=== PATIENT | male | born 1955 | race Caucasian/White ===

== ENCOUNTER → 2024-05-26 | Outpatient (CLI) | payer MEDICARE ==
--- NOTE | 2024-06-01 06:15 | MR ---
EXAMINATION TYPE: MR hip LT wo con DATE OF EXAM: 05/26/2024 COMPARISON: None. HISTORY: Lt hip pain, limited movement for over a year. Standard multiplanar, multisequence MRI departmental protocol Multiplanar, multisequence images of the pelvis focusing on the left hip were acquired without contra st. FINDINGS: Susceptibility artifact from right hip arthroplasty is identified. There is moderate to sev ere joint space loss in the left hip with moderate acetabular spurring. No significant left hip joint effusion is present. Femoral head shape is maintained. No significant increased T2 signal or osseous edema. No serpiginous diminished T1 signal to suggest avascular necrosis. No groin adenopathy is pre sent bilaterally. No groin hernia is seen. Muscle bulk is symmetric and maintained bilaterally. Prostate gland appears within normal limits. No abnormal bowel dilatation is seen. No free fluid in p bob is noted. 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
== END | disposition home or self-care (01) ==
LOC: RADMRIMAIN 11:08
PROVIDERS: ATTEND Orthopaedic Surgery
DX: M25.552 Pain in left hip (principal); M16.12 Unilateral primary osteoarthritis, left hip; M71.352 Other bursal cyst, left hip; M87.052 Idiopathic aseptic necrosis of left femur

== ENCOUNTER → 2024-10-12 | Outpatient (CLI) | payer MEDICARE ==
--- NOTE | 2024-10-12 22:31 | MR ---
EXAMINATION TYPE: MR lumbar spine wo con DATE OF EXAM: 10/12/2024 COMPARISON: NONE HISTORY: Potential Spinal Stenosis per patient. Lower extremity weakness, radiculopathy, degenerative disc disease, history of laminectomy, and low back pain per order. TECHNIQUE: Multiplanar, multisequence imaging of the lumbar spine is performed without IV contrast. FINDINGS: Slightly scoliotic curvature in the lower lumbar spine. Sagittal images of the lumbar spine show vertebral body heights to appear satisfactory. There is grade 1 retrolisthesis L2 on L3 and L4 on L5. Disc desiccation L4-L5 and L5-S1 levels where there is moderate to advanced disc space narrowi ng and spurring. There is heterogeneous bony endplate changes at L4-L5 level. The conus medullaris i s normal in position and signal ending superior L1 level. Axial images at T12-L1 level shows mild to moderate broad disc bulge effacing the anterior thecal sac . Axial images at L1-L2 level appear within normal limits. Axial images at L2-L3 level shows moderate broad-based posterior disc protrusion effaces the anterior thecal sac along with mild to moderate facet arthropathy bilaterally. There is mild to moderate righ t greater than left bilateral neural foraminal narrowing. Axial images at L3-L4 level moderate broad-based posterior disc protrusion effacing anterior thecal s ac along with moderate facet arthropathy and ligamentum flavum hypertrophy effacing the lateral theca l sac bilaterally. There is mild to moderate left greater than right bilateral neural foraminal narro wing. Axial images at L4-L5 level shows spondylosis with moderate broad disc bulge mildly effacing the ante rior thecal sac. There is mild to moderate right greater than left facet arthropathy. There is modera te right and mild left-sided neural foraminal narrowing. There are bilateral laminectomy defects and spinous process resection noted at this level. Axial images at L5-S1 level moderate broad disc bulge and mild facet arthropathy. Spinal canal is pre served. There is moderate to advanced right greater than left bilateral neural foraminal narrowing. E ncroachment on the exiting right L5 nerve is felt present. Paraspinal muscle bulk is maintained. There is 3.4 cm simple appearing thin-walled cyst in the left [place] suspected axial image 21. Similar sized simple cyst is felt present inferior to this axial imag e 16. IMPRESSION: Multilevel spondylolisthesis and degenerative change in the lumbar spine as detailed abov e. [facility], Workstation: [id number], 10/12/2024 10:29 PM
== END | disposition home or self-care (01) ==
LOC: RADMRIMAIN 21:45
PROVIDERS: ATTEND Orthopaedic Surgery Orthopaedic Surgery of the Spine
DX: M51.16 Intervertebral disc disorders with radiculopathy, lumbar region (principal); M47.26 Other spondylosis with radiculopathy, lumbar region; M43.16 Spondylolisthesis, lumbar region; M99.73 Connective tissue and disc stenosis of intervertebral foramina of lumbar region
CPT/HCPCS: 72148